=== PATIENT | male | born 1975 | race African-American/Black ===

== ENCOUNTER 2018-05-06 14:54 | Emergency (ER) | payer MEDICAID, OTHER ==
[~2018-05-06] VITALS: Ht 188 cm; Wt 100.0 kg
[2018-05-06] MEDS ORDERED: BACITRACIN ZINC OINT UDPKT TOP ONE (15:30)
[2018-05-06 17:45] VITALS: BP 160/89
== END 2018-05-06 18:30 | disposition home or self-care (01) ==
LOC: ER 14:54
DX: S00.81XA Abrasion of other part of head, initial encounter (principal); F10.229 Alcohol dependence with intoxication, unspecified; Y90.6 Blood alcohol level of 120-199 mg/100 ml; V43.52XA Car driver injured in collision with other type car in traffic accident, initial encounter; Y93.89 Activity, other specified; Y92.488 Other paved roadways as the place of occurrence of the external cause
CPT/HCPCS: 36415; 70450; 99284; G0482